=== PATIENT | female | born 1955 | race Caucasian/White ===

== ENCOUNTER 2018-11-25 17:35 | Emergency (ER) ==
[2018-11-25 17:48] VITALS: BP 204/109; TEMP 97; BMI 23.7
--- NOTE | 2018-11-25 18:22 | ED.PDOC ---
General ED Provider: Dr. SAMIA LEGGETT Chief Complaint: Back Pain Stated Complaint: Severe Back pain, nausea, vomiting and diarrhea. 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 While driving her car developed acute back pain -shooting through from her abdominal region of the bulge caused from a large diastasis recti. Hx of Gastric BY Pass Surgery 2006 [facility]. Denies past hx HTN. Time Seen by Physician: 17:39 Mode of Arrival: Wheelchair Information Source: Patient, Family Nursing and Triage Documentation Reviewed and Agree: Yes Does patient meet sepsis criteria?: No System Inflammatory Response Syndrome: Not Applicable Sepsis Protocol: For patient's 13 years and over: Temp is 96.8 and below OR 101 and greater Pulse >90 BPM Resp >20/minute Acutely Altered Mental Status Are patient's symptoms suggestive of a new infection, such as: -Pneumonia -Skin, Soft Tissue -Endocarditis -UTI -Bone, Joint Infection -Implantable Device -Acute Abdominal Infection -Wound Infection -Meningitis -Blood Stream Catheter Infection -Unknown Review of Systems - Review Of Systems Constitutional: Reports: Sweats Eyes: Reports: No symptoms Ears, Nose, Mouth, Throat: Reports: No symptoms Respiratory: Reports: No symptoms Cardiac: Reports: No symptoms GI: Reports: Abdomen distended, Abdominal pain, Diarrhea, Nausea, Poor appetite , Vomiting : Reports: No symptoms Musculoskeletal: Reports: No symptoms Skin: Reports: No symptoms Neurological: Reports: No symptoms Endocrine: Reports: No symptoms Hematologic/Lymphatic: Reports: No symptoms All Other Systems: Reviewed and Negative Past Medical History - Past Medical History Previously Healthy: No Endocrine: Reports: None Cardiovascular: Reports: None Respiratory: Reports: None Hematological: Reports: None 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) Genitourinary: Reports: None Neuro/Psych: Reports: Depression (Bipolar) Musculoskeletal: Reports: None Cancer: Reports: Other (cervical) Last Menstrual Period: menopause - Surgical History General Surgical History: Reports: Lap Band (Gastric BY PASS surgery) - Family History Family History: Reports: None - Social History Smoking Status: Never smoker Hx Substance Use: No Alcohol Screening: None Physical Exam - Physical Exam Appearance: Ill-appearing, Thin Ill-appearing: Moderate Pain Distress: Severe Eyes: JOSIAH, EOMI, Conjunctiva clear ENT: Ears normal, Nose normal, Oropharynx normal Neck: Supple Respiratory: Airway patent, Breath sounds clear, Breath sounds equal, Respirations nonlabored Cardiovascular: RRR, Pulses normal, No rub, No murmur GI/: Soft, Tender, Bowel sounds hypoactive (large central defect with bulging but easily reducible/minimally tender without guarding or rebound) Musculoskeletal: Normal strength, ROM intact, No edema, No calf tenderness Skin: Warm, Dry, Normal color Neurological: Sensation intact, Motor intact, Reflexes intact, Cranial nerves intact, Alert, Oriented Psychiatric: Affect appropriate, Mood appropriate Critical Care Note - Critical Care Note Total Time (mins): 90 Course - Course Hematology/Chemistry: 11/25/18 18:25 11/25/18 18:25 Orders, Labs, Meds: Lab Review 11/25/18 11/25/18 11/25/18 18:25 18:25 18:25 WBC 16.55 H RBC 4.71 Hgb 14.7 Hct 45.2 MCV 96.0 MCH 31.2 H MCHC 32.5 RDW Coeff of Ole 13.6 Plt Count 364 Immature Gran % (Auto) 0.4 Neut % (Auto) 83.3 Lymph % (Auto) 8.2 L [place] % (Auto) 6.6 Eos % (Auto) 1.1 Baso % (Auto) 0.4 Immature Gran # (Auto) 0.1 Neut # (Auto) 13.8 H Lymph # (Auto) 1.4 [place] # (Auto) 1.1 Eos # (Auto) 0.2 Baso # (Auto) 0.1 Sodium 138.6 Potassium 3.74 Chloride 102.2 Carbon Dioxide 23.7 Anion Gap 16.44 BUN 15.2 Creatinine 0.79 Estimated GFR (MDRD) 73.00 BUN/Creatinine Ratio 19.24 Glucose 110.0 H Lactic Acid Calcium 10.83 H Magnesium 2.01 Total Bilirubin 0.80 AST 33.9 ALT 24.8 Alkaline Phosphatase 48.7 L Troponin I < 0.012 Total Protein 8.95 H Albumin 5.68 H Globulin 3.27 Albumin/Globulin Ratio 1.73 Amylase Lipase 557.2 H Procalcitonin < 0.05 Influ A Molecular Assay Influ B Molecular Assay 11/25/18 11/25/18 11/25/18 18:35 18:37 18:40 WBC RBC Hgb Hct MCV MCH MCHC RDW Coeff of Ole Plt Count Immature Gran % (Auto) Neut % (Auto) Lymph % (Auto) [place] % (Auto) Eos % (Auto) Baso % (Auto) Immature Gran # (Auto) Neut # (Auto) Lymph # (Auto) [place] # (Auto) Eos # (Auto) Baso # (Auto) Sodium Potassium Chloride Carbon Dioxide Anion Gap BUN Creatinine Estimated GFR (MDRD) BUN/Creatinine Ratio Glucose Lactic Acid 1.87 Calcium Magnesium Total Bilirubin AST ALT Alkaline Phosphatase Troponin I Total Protein Albumin Globulin Albumin/Globulin Ratio Amylase 118.5 H Lipase Procalcitonin Influ A Molecular Assay Negative by naat Influ B Molecular Assay Negative by naat Orders Category Date Time Status EKG-(ED ONLY) Stat CARDIO 11/25/18 18:21 Completed ED NASOGASTRIC TUBE INSERTION .ONCE EMERGENCY 11/25/18 19:22 Active IV [ED IV/MEDIPORT/POWERPORT] .ONCE EMERGENCY 11/25/18 18:22 Active AMYLASE Stat LAB 11/25/18 18:37 Completed BLOOD CULTURE (ED ONLY) Stat LAB 11/25/18 18:40 Received CBC W/ AUTO DIFF Stat LAB 11/25/18 18:25 Completed CMP [COMPREHENSIVE METABOLIC PANEL] Stat LAB 11/25/18 18:25 Completed FLU A & B MOLECULAR [FLU A/B MOLECULAR] Stat LAB 11/25/18 18:35 Completed LACTIC ACID Stat LAB 11/25/18 18:40 Completed LIPASE Stat LAB 11/25/18 18:25 Completed MAGNESIUM Stat LAB 11/25/18 18:25 Completed PROCALCITONIN Stat LAB 11/25/18 18:25 Completed TROPONIN I Stat LAB 11/25/18 18:25 Completed UA [URINALYSIS C & S IF INDICATED] Stat LAB 11/25/18 18:20 Uncollected 0.9 % Sodium Chloride [Saline Flush] MEDS 11/25/18 18:22 Ordered 1 syr IVF PRN PRN Famotidine Inj [Pepcid] MEDS 11/25/18 18:31 Discontinued 20 mg IVP ONCE STA Hydromorphone HCl [Dilaudid 1 mg/ml Syringe] MEDS 11/25/18 19:00 Discontinued 1 mg IM ONCE STA Hydromorphone HCl [Dilaudid 1 mg/ml Syringe] MEDS 11/25/18 20:32 Stat 1 mg IVP ONCE STA Lidocaine HCl [Lidocaine Jelly 2%] MEDS 11/25/18 19:46 Discontinued 1 applic [id number] .STK-MED ONE Lidocaine/Prilocaine [Emla Cream] MEDS 11/25/18 20:10 Discontinued 1 applic TP ONCE STA Ondansetron HCl/Pf [Zofran 4 mg/2 ml] MEDS 11/25/18 18:30 Discontinued 4 mg IVP ONCE STA Sodium Chloride 0.9% [Sodium Chloride] 500 ml MEDS 11/25/18 18:30 Active IV 125 mls/hr CHEST, 1V AP ONLY Stat RADS 11/25/18 18:21 Completed CHEST, 1V AP ONLY Stat RADS 11/25/18 20:[address] ABDOMEN/PELVIS WO CONTRAST Stat RADS 11/25/18 18:31 Completed Medications Generic Name Dose Route Start Last Admin Trade Name Freq PRN Reason Stop Dose Admin Sodium Chloride 500 mls @ 125 mls/hr 11/25/18 18:30 11/25/18 18:40 Sodium Chloride IV 11/25/18 22:29 125 mls/hr .Q4H STA Administration Sodium Chloride 1 syr 11/25/18 18:22 11/25/18 18:40 Saline Flush IVF 1 syr PRN PRN Administration To flush IV Discontinued Medications Generic Name Dose Route Start Last Admin Trade Name Freq PRN Reason Stop Dose Admin Famotidine 20 mg 11/25/18 18:31 11/25/18 18:40 Pepcid IVP 11/25/18 18:32 20 mg ONCE STA Administration Hydromorphone HCl 1 mg 11/25/18 19:00 11/25/18 19:07 Dilaudid 1 Mg/Ml Syringe IM 11/25/18 19:01 1 mg ONCE STA Administration Hydromorphone HCl 1 mg 11/25/18 20:32 11/25/18 20:36 Dilaudid 1 Mg/Ml Syringe IVP 11/25/18 20:33 1 mg ONCE STA Administration Lidocaine/Prilocaine 1 applic 11/25/18 20:10 11/25/18 20:15 Emla Cream TP 11/25/18 20:11 1 applic ONCE STA Administration Ondansetron HCl 4 mg 11/25/18 18:30 11/25/18 18:39 Zofran 4 Mg/2 Ml IVP 11/25/18 18:31 4 mg ONCE STA Administration Vital Signs: Temp Pulse Resp BP Pulse Ox 11/25/18 17:37 97 F L 70 20 204/109 H 99 STAN Risk Score STAN Risk Score: Risk Score Odds of by 30D 0 0.1 (0.1-0.2) 1 0.3 (0.2-0.3) 2 0.4 (0.3-0.5) 3 0.7 (0.6-0.9) 4 1.2 (1.0-1.5) 5 2.2 (1.9-2.6) 6 3.0 (2.5-3.6) 7 4.8 (3.8-6.1) Departure - Departure Time of Disposition: 20:30 Disposition: HOME SELF-CARE Discharge Problem: Acute abdominal pain, Small bowel obstruction Condition: Fair Pt referred to PMD for follow-up: Yes (post hosp) IPMP verified?: No Additional Instructions: Discussed findings with patient and her mother [facility] transfer center for transfer. Allergies/Adverse Reactions: Allergies No Known Allergies Allergy (Unverified 11/25/18 17:54) Home Medications: Ambulatory Orders Aripiprazole [Abilify] 15 mg PO DAILY 11/25/18 Lorazepam 2 mg PO TID 11/25/18 Trazodone HCl 100 mg PO DAILY 11/25/18 Venlafaxine HCl [Effexor Xr] 150 mg PO DAILY 11/25/18 Transfer Form Completed: Yes Disposition Discussed With: Patient, Family GI Complaint Exam - Abdominal Pain Complaint/Exam Onset: Sudden Duration: 2 hr Symptoms Are: Worse Timing: Constant Initial Severity: Moderate Current Severity: Severe Location of Pain: Epigastric (mid epigastric to mid abdomen) Radiates To: Reports: Back Character: Reports: Aching, Throbbing, Cramping, Colicky Aggravating: Reports: Movement, Position Alleviating: Reports: None Associated Signs and Symptoms: Reports: Diaphoresis, Nausea, Vomiting, Diarrhea Related History: Denies: Similar episode STUDENT SUPPORT ADVISOR History: Reports: Ectopic (Hx cervical Cancer) AAA Risk Factors: Reports: None Cardiac Risk Factors: Reports: None Ectopic Risk Factors: Reports: None Ovarian Torsion Risk Factors: Reports: None Surgical Obstruction Risk Factors: Reports: Colicky abdominal pain Related Surgical History: Reports: Appendectomy, Gastric Bypass Abdominal Findings: Present: Abdominal distention, CVA Tenderness, Hernia, Other (BS Hyperactive and borbygmic) Adnexal Exam: Present: Normal Findings Differential Diagnoses: Gastroenteritis, Ischemic Bowel, UTI, Other (mesenteric ischemia; pancreatitis) Additional Information: Spoke with Surgeon Dr Valladares at [facility] Accepted patient in transfer
[2018-11-25] MEDS ORDERED: SODIUM CHLORIDE 500 ML IV STA (18:30)
[2018-11-25] MEDS ORDERED: ZOFRAN 4 MG/2 ML IVP STA (18:30)
[2018-11-25] MEDS ORDERED: PEPCID IVP STA (18:31)
[2018-11-25] MEDS ORDERED: CATAPRES PO STA (18:59)
[2018-11-25] MEDS ORDERED: DILAUDID 1 MG/ML SYRINGE IM STA (19:00)
--- NOTE | 2018-11-25 19:08 | DI ---
EXAM: Single view chest. HISTORY: Chest and back pain. COMPARISON: None. FINDINGS: The heart is normal in size. Calcified plaques overlie the aorta. Pulmonary vascularity i s within normal limits. No focal airspace opacity or pleural effusion is seen. S-shaped curvature o f the thoracolumbar spine is seen. IMPRESSION: No acute cardiopulmonary findings. S-shaped thoracolumbar scoliosis.
--- NOTE | 2018-11-25 19:17 | CT ---
Exam: CT abdomen pelvis without intravenous contrast. Comparison: Abdominal pain in region of hernia. FINDINGS: No pleural effusion, or focal consolidation in the partially imaged lung bases. Nodular d ensities are seen in the right lung base measuring 9.8 mm on axial image number 36 with pleural thick ening measuring 21 x 9 mm on axial image number 27. The aorta is normal in course and caliber. The heart is not enlarged. Operative changes are seen in the upper abdomen with a small hiatal hernia. Large amount of air and fluid is seen in the stomach and proximal small bowel with small bowel dilata tion measuring up to 4.1 cm with a suspected transition point in the mid abdomen. Cannot rule out in ternal herniation. No bowel containing hernia is seen. No hydronephrosis or nephrolithiasis. Atherosclerotic disease is seen within the aorta and distal arterial vasculature. Degenerative disea se is seen in the lumbosacral spine. No intra-abdominal free air. The bladder appears grossly unremarkable. Mild perirectal wall thickening. Impression: 1. Imaging findings are consistent with a small bowel obstruction with a likely transition point in the mid abdomen. Cannot rule out internal herniation. No bowel containing hernia is seen on this ex am. 2. Operative changes are seen within the abdomen. 3. Mild perirectal wall thickening may be inflammatory or infectious. Recommend attention this lv on on follow up imaging and consider direct visualization. 4. Right lower lobe lung nodules. Recommend 3-month follow-up to document stability. 5. Small hiatal hernia and postoperative change in the upper and mid abdomen. Findings were discussed directly with the emergency department physician at 1912 hours on 11/25/2018.
[2018-11-25] MEDS ORDERED: LIDOCAINE JELLY 2% MUCOUSMEMB ONE (19:46)
[2018-11-25] MEDS ORDERED: EMLA CREAM TP STA (20:10)
[2018-11-25] MEDS ORDERED: DILAUDID 1 MG/ML SYRINGE IVP STA (20:32)
--- NOTE | 2018-11-25 20:57 | DI ---
EXAM: Single view chest. HISTORY: NG tube placement. COMPARISON: Exam from same day. FINDINGS: Interval placement of NG tube is seen with distal tip overlying the distal esophagus. Gase ous distension of the stomach is seen. Gas-filled bowel loops overlie the upper abdomen. Visualized lung zones appear grossly clear. IMPRESSION: High-riding NG tube. Recommend advancing.
--- NOTE | 2018-11-25 21:15 | DI ---
Exam: Chest one-view History: Tube placement Findings / impression: Compared with earlier same day. Interval placement endogastric tube with its tip in the stomach. The proximal port is about 4 cm above the gastroesophageal junction. No develo ping opacities.
== END 2018-11-25 21:23 | disposition short-term general hospital (02) ==
LOC: ED 17:35
DX: M54.9 Dorsalgia, unspecified (principal); R11.2 Nausea with vomiting, unspecified; R19.7 Diarrhea, unspecified; R10.9 Unspecified abdominal pain; R63.0 Anorexia; R14.0 Abdominal distension (gaseous); K56.609 Unspecified intestinal obstruction, unspecified as to partial versus complete obstruction
CPT/HCPCS: 36415; 80053; 82150; 83605; 83690; 83735; 84145; 84484; 85025; 87040; 87502; 93005; 93010; 96361; 96374; 96375; 96376; 99285